=== PATIENT | male | born 1985 | race Caucasian/White ===

== ENCOUNTER → 2017-03-14 | Emergency (ER) | payer SELFPAY ==
[~2017-03-14] VITALS: Ht 182.9 cm; Wt 97.5 kg
[2017-03-14 20:05] LABS: URINE BILIRUBIN - DIPSTICK NEGATIVE (NEG); URINE BLOOD 1+ (NEG)
[2017-03-14 20:06] LABS: HEMOGLOBIN 14.4 g/dL (14.1-18.0); LYMPH # 4.3 K/mm3 (0.7-4.5); LYMPH % 43.5 % (10-50)
--- NOTE | 2017-03-14 20:16 | Emergency Room Report ---
History of Present Illness Time Seen by 1999 Presenting Problem in Triage Pt arrived:Walked Presenting Problem:left flank pain. difficulty voiding Onset of symptoms date/time:/ or onset unknown for:MEDICAL HX UNKNOWN Treatment Prior to Arrival: CLIENT RELATIONSHIP MANAGER Provided by: Sepsis Risk Assessment: Temp: 98.7 B/P: 116/68 MAP: 84 Pulse: 75 Resp: 20 Recent fever? N Clinical Suspician of Infection? N Mental Status: 1 - Regular (Normal Baseline) Sepsis Risk:Low Sepsis Risk Have you (or family members/close friends) recently traveled outside the [place]? N If Yes, where/when: Have you had exposure to infectious disease within the past month? TB? Other? Specify: Source patient, RN notes reviewed, old records Exam Limitations no limitations Comment lt flank pain over the last few days with no fever or gross hematuria Cardiac Chest Pain Chest pain indicative of cardiac No Timing/Duration this evening Severity moderate ALLERGIES Coded Allergies: Penicillins (03/14/17) History Medical History General CAD? No Angina: No [place]: No Hypertension? No Hyperlipidemia? No CHF? No DVT? No PE? No COPD? No Asthma? No Anemia? No GERD? No Gastric ulcers? No GI Bleed? No Hernia? No Thyroid Problems? No Hypothyroidism? No CVA? No Seizures? No Diabetes? No Renal Insuffiency? No End Stage Renal Disease? No UTI? No Stones? No BPH? No GB Disease: No Nephritic Syndrome? No Asplenia? No Hepatitis? No Sickle Cell Disease? No Arthritis? No Migraines? No Cataracts? No Glaucoma? No MRSA? No HIV? No TB? No Anxiety? No Depression? No Cancer? No More? No Immunization Hx DT/Tetanus Unknown Surgical Hx Previous Surgery?Y knee surgery brain surgery Social History Smoking Hx Smoker: Current Every Day Smoker Tobacco: Yes Type Cigarettes Alcohol Alcohol: No Drugs none Review of Systems All Other Systems Reviewed and Negative Constitutional denies fever Eyes denies drainage ENT denies: ear discharge, epistaxis, throat pain. Respiratory denies cough, denies shortness of breath, denies wheezing Cardiovascular denies chest pain, denies syncope Gastrointestinal denies abdominal pain, denies diarrhea, denies vomiting Genitourinary denies: dysuria, frequency, hesitancy, hematuria. Musculoskeletal denies back pain, denies joint pain, denies neck pain Skin denies rash Psychiatric/Neurological denies headache, denies seizure Physical Exam Vital Signs Vital Signs Date Time Temp Pulse Resp B/P Pulse O2 O2 Flow FiO2 Ox Delivery Rate 03/14 1945 98.7 75 20 96 03/14 1944 98.7 75 20 96 - WBC >12,000 or <4,000 or 10% bands? 2 or more SIRS Criteria Met? B/P: MAP:84 Creatinine >2.0? UA output<0.5ml/kg/hr for 2 hrs? Platelet count >100,000? Lactate >2.0mmol/1? INR >1.2 or PTT > than 60 sec? Evidence of Organ Dysfunction? Provider documented clinical suspician of infection? N Sepsis Criteria Count: 1 Sepsis Risk: Low Sepsis Risk General Appearance no apparent distress Eye Exam - bilateral eye PERRL, bilateral eye EOMI Ear, Nose, Throat normal ENT inspection Neck supple Respiratory Status No: respiratory distress. Cardiovascular regular rate/rhythm Peripheral Pulses Pulses normal Yes Gastrointestinal soft Extremities normal inspection Strength 4 Upper Ext (L), 4 Upper Ext (R), 4 Lower Ext (L), 4 Lower Ext (R) Neurologic alert, fourdrinier machine tender II-XII nml as tested, no motor/sensory deficits Reflexes Reflexes normal Yes Mental status normal mood/affect Skin intact Medical Decision Making LABS/Meds/Orders Pt receiving controlled substance in ED? No Results/Orders Laboratory Tests 03/14/171999: Sodium 138, Potassium 3.7, Chloride 105, Carbon Dioxide 26, BUN 16, Creatinine 1.0, Estimated Creat Clear 149, Estimated GFR (MDRD) 88, Glucose 97, Calcium 8.9 , Total Bilirubin 0.4, AST 13 L, ALT 22, Alkaline Phosphatase 108, Total Protein 7.1, Albumin 3.9, Globulin 3.2, Albumin/Globulin Ratio 1.2, WBC 9.9, RBC 4.77, Hgb 14.4, Hct 44.1, MCV 92.6, RDW 12.7, Plt Count 276, MPV 7.6, Gran % 48.6, Gran # 4.8, Lymphocytes % 43.5, Monocytes % 4.0, Eosinophils % 3.3, Basophils % 0.6, Lymphocytes # 4.3, Monocytes # 0.4, Eosinophils # 0.3, Basophils # 0.1, PUBS MCHC 32.6, MCH 30.1, Urine Color YELLOW, Urine Appearance CLEAR, Urine pH 6.0, Ur Specific [place] 1.020, Urine Protein NEGATIVE, Urine Ketones NEGATIVE, Urine Blood 1+ H, Urine Nitrate NEGATIVE, Urine Bilirubin NEGATIVE, Urine Urobilinogen 0.2, Ur Leukocyte Esterase NEGATIVE, Urine RBC 10- 20, Urine WBC 3-5, Ur Squamous Epith Cells 10-20, Urine Bacteria 1+, Urine Glucose NEGATIVE Current Medication Orders Sig/Lesley Start time Last Medication Dose Route Stop Time Status Admin Sodium Chloride 10 ML PRN PRN 03/14 2000 AC IV 03/15 1948 Sodium Chloride 1,000 ML .Q1H1M 03/14 2000 AC 03/14 IV 03/14 Sodium Chloride 10 ML PRN PRN 03/14 2000 AC IV 03/15 1948 Orders Procedure Date/time Status DIET-NOTHING BY MOUTH 03/[address] ABD & PELVIS W/O CONTRAST 03/[address] ABD/PELVIS REQ 03/14 1948 Complete IV SALINE LOCK 03/14 1948 Active URINALYSIS/COMPLETE 03/14 1948 Complete COMPLETE METABOLIC PANEL 03/14 1948 Complete CBC WITH AUTO DIFF 03/14 1948 Complete XRAY/CT/US XRAY/CT/US CT abdomen, pelvis CT interpretation by discussed w/radiologist Time results known: 2024 Departure Departure Time of Disposition 2029 Disposition DC Home or Self Care(routine) Clinical Impression Primary Impression: Renal colic on left side Condition STABLE Patient Instructions DI for Kidney Stones Additional Instructions fluids and strain urine and see pcp for follow up Discharge Counseling Counseled pt/family regarding diagnosis, test results, medications/RX, follow up needs ED Critical Care Critical Care No at 2033
[2017-03-14 20:40] VITALS: BP 134/69
--- NOTE | 2017-03-14 20:46 | RADIOLOGY REPORT PS360 ---
CT ABD PELVIS W/O CONTRAST COMPARISON: None HISTORY: Left flank pain TECHNIQUE: Multiaxial scans obtained from hemidiaphragms the pelvic floor and were performed without IV or oral contrast. Sagittal and coronal reformats were evaluated as well. FINDINGS: The lower lung salomon are clear. The liver and spleen appear normal. The stomach is distended with food particles and the gallbladder is markedly contracted but shows no stones. The pancreas is normal. The adrenal glands are normal. The kidneys are normal size and there is a tiny nontracking calculus midpole right kidney and possibly a very faint nonobstructing calculus lower pole left kidney. There is no obstructive uropathy of either kidney. However there is a tiny calculus 1 to 2 mm in size just inside the urinary bladder likely recently passed. Small bowel appears normal, the appendix is normal. There is a moderate amount stool in the ascending transverse colon. There is large amount stool in the sigmoid colon and rectum. Urinary bladder is normal, the prostate is normal. IMPRESSION: Probable recently passed tiny ureteral calculus 1 to 2 mm in size, other nonacute findings as described above
--- OUTSIDE RECORDS SUMMARY | 2017-03-17 14:48 | External Medical Summary Rpt | CCD ---
Author Author , MONTANA BOYLE Address Unknown Phone [email or web address] Care Team Providers Care Enterprise Solutions Architect Name Role Phone CHELO GUN CLUB MANAGER, CHELO Unavailable Unavailable GUN CLUB MANAGER ALMAGUER MAT, ALMAGUER Unavailable Unavailable [facility] ESCOTT EDW, ESCOTT Unavailable Unavailable [facility] Unavailable [facility] LOLI NIYA, LOLI NIYA Unavailable Unavailable [facility] Un[facility] MERHAR GAR, MERHAR Unavailable Unavailable [facility] BURTON, O' REEL Unavailable Unavailable FORTUNATO ALARCON Unavailable Unavailable [facility], Unavailable Unavailable [facility] Purpose Continuity of Care Document - 02-19-2016 through 2016 Problems Code Diagnosis DOS Provider Status R4182 ALTERED 02-26-2016 [facility] STATUS [facility] UNSPECIFIED R569 UNSPECIFIED 02-26-2016 [facility] CONVULSIONS [facility] R6889 OTHER 02-26-2016 [facility] SYMPTOMS [facility] AND SIGNS Z049 ENCOUNTER 02-21-2016 [facility] EXAMIN[facility] SERV &OBSERVATIO FOUNDATION N FOR UNS REASON I498 OTHER 02-19-2016 [facility] SPECIFIED [facility] CARDIAC F[facility] ARRHYTHMIAS R4781 SLURRED 02-19-2016 [facility]ECH [facility] R479 UNSPECIFIED 02-19-2016 [facility] DISTURBANCE S R9431 ABNORMAL 02-19-2016 [facility] ELECTROCARD SERV IOGRAM [facility] Z720 TOBACCO USE 02-19-2016 [facility] [id number] PERSONAL HX 02-19-2016 [facility] PH[facility] INJURY & TRAUMA Results Labs Lab Lab Date Result Refere Interp Status Commen Order Detail nces retati t Range on Urinalysis dipstick W Reflex Microscopic panel in Urine (03-14-2017 20:00) Bacteri 1+ O complet a 017 ed [Presen 20:00 ce] in Urine sedimen t by Light microsc opy Erythro 03-23 0 complet cytes 017 ed [Presen 20:00 ce] in Urine sedimen t by Light microsc opy Epithel 10-11-2 10-20 OCC complet ial 017 ed cells.s 20:00 quamous [Presen ce] in Urine sedimen t by Microsc opy high power field Leukocy 10-11-2 3-5 O complet eliana 017 wbc/hpf ed [#/volu 20:00 me] in Urine Urinalysis dipstick W Reflex Microscopic panel in Urine (03-14-2017 20:00) Appeara --2 CLEAR CLEAR complet nce of 017 ed Urine 20:00 Bilirub --2 NEGATIV NEG complet in 017 E ed [Presen 20:00 ce] in Urine by Test strip Erythro 03-14-2 1+ NEG Abnorma complet cytes 017 l ed [Presen 20:00 ce] in Urine Color 03-14-2 YELLOW YELLOW complet of 017 ed Urine 20:00 Ketones 03-14-2 NEGATIV NEG complet 017 E ed [Presen 20:00 ce] in Urine by Automat ed test strip Mucus 03-14-2 NEGATIV NEG complet [Presen 017 E ed ce] in 20:00 Urine sedimen t by Light microsc opy Nitrite 03-14-2 NEGATIV NEG complet 017 E ed [Presen 20:00 ce] in Urine by Test strip Urobili --2 0.2 NEG complet nogen 017 ed [Presen 20:00 ce] in Urine by Test strip Procedures Procedure [place] [address] [place] NIYA HEAD/BRAI 6 MEDICAL N W/O SERV CONTRAST FOUNDATIO MATERIAL N RADEX 57617 [place] HAND 6 MEDICAL GAR MINIMUM 3 SERV VIEWS FOUNDATIO N RADEX 16941 [place] FOREARM 2 6 MEDICAL GAR VIEWS SERV FOUNDATIO N RADEX 49689 [place] [facility] WRIST 6 MEDICAL GAR COMPLETE SERV MINIMUM 3 FOUNDATIO VIEWS N ECG 13169 [facility] ROUTINE [address] [facility] W/LEAST 12 LDS TRCG ONLY W/O I&R DRUG TEST G0480 [facility] [address] [facility] METH P DAY 1-[address] [place] [address] [place] ANGIOGRAP 6 MEDICAL EDW HY HEAD SERV W/CONTRAS FOUNDATIO T/NONCONT N RAST ECG 62741 NIDHI CHELO ROUTINE 6 MEDICAL GUN CLUB MANAGER ECG SERV W/LEAST FOUNDATIO 12 LDS N I&R ONLY BLOOD 31715 [facility] COUNT 6 Y Y COMPLETE [facility] AUTOMATED LOCM Q9967 [facility] [phone] Y Y MG/ML [facility] IODINE CONCENTRA TION PER ML COMPREHEN 81504 [facility] SIVE [address] [facility] PANEL URNLS DIP 24899 [facility] 6 Y Y STICK/TAB [facility] LET RGNT AUTO W/[place] [address] NIDHI GIBBONSOTT ANGIOGRAP 6 MEDICAL EDW HY NECK SERV W/CONTRAS FOUNDATIO T/NONCONT N RAST Encounters Encounter Start End Date Code Location Performer Type Date OFFICE 07567 NIDHI FORTUNATO CANTU CONSULTAT 6 6 MEDICAL ION SERV NEW/ESTAB FOUNDATIO PATIENT N 60 MIN EMERGENCY 64589 NIDHI ALMAGUER 6 6 MEDICAL MAT DEPARTMEN SERV T VISIT FOUNDATIO HIGH/URGE N NT [facility] UNIVERSIT - 6 6 Y OUTPATIEN HOSPITAL T EMERGENCY [address] [facility] O[facility] REEL DEPT 6 6 [place] VISIT PHYSICIAN HIGH S ASSIST SEVERITY& THREAT FUNCJ
--- OUTSIDE RECORDS SUMMARY | 2017-03-17 14:48 | External Medical Summary Rpt | CCD ---
Author Author , MNOTANA BOYLE Address Unknown Phone [email or web address] Care Team Providers Care Sheriff Detective Name Role Phone CHELO CARTOGRAPHIC TECHNICIAN, CHELO Unavailable Unavailable CARTOGRAPHIC TECHNICIAN ALMAGUER MAT, ALMAGUER Unavailable Unavailable [facility] ESCOTT EDW, ESCOTT Unavailable Unavailable [facility] Unavailable [facility] LOLI NIYA, LOLI NIYA Unavailable Unavailable [facility] Unavailable Unavailable [facility], [facility] MERHAR GAR, MERHAR Unavailable Unavailable [facility] BURTON, O' REEL Unavailable Unavailable FORTUNATO ALARCON Unavailable Unavailable [facility], Unavailable Unavailable [facility] Purpose Continuity of Care Document - 02-19-2016 through 2016 Problems Code Diagnosis DOS Provider Status R4182 ALTERED 02-26-2016 [facility] STATUS [facility] UNSPECIFIED R569 UNSPECIFIED 02-26-2016 [facility] CONVULSIONS [facility] R6889 OTHER 02-26-2016 [facility] SYMPTOMS [facility] AND SIGNS Z049 ENCOUNTER 02-21-2016 [facility] EXAMINATION SERV &OBSERVATIO FOUNDATION N FOR UNS REASON I498 OTHER 02-19-2016 [place] [facility] SPECIFIED SERV CARDIAC FOUNDATION ARRHYTHMIAS R4781 SLURRED 02-19-2016 [place] [facility] SPEECH SERV [facility] R479 UNSPECIFIED 02-19-2016 [facility] DISTURBANCE S R9431 ABNORMAL 02-19-2016 [place] [facility] ELECTROCARD SERV IOGRAM [facility]ATION Z720 TOBACCO USE 02-19-2016 [facility] [id number] PERSONAL HX 02-19-2016 [facility] PHYSICAL [facility] INJURY [...] Procedure [place] [address] [place] OLLI NIYA HEAD/BRAI 6 MEDICAL N W/O SERV CONTRAST FOUNDATIO MATERIAL N RADEX 49476 [place] HAND 6 MEDICAL GAR MINIMUM 3 SERV VIEWS FOUNDATIO N RADEX 36846 [place] FOREARM 2 6 MEDICAL GAR VIEWS SERV FOUNDATIO N RADEX 63283 [place] WRIST 6 MEDICAL GAR COMPLETE SERV MINIMUM 3 FOUNDATIO VIEWS N ECG 26133 [facility] ROUTINE 6 Y Y ECG [facility] W/LEAST 12 LDS TRCG ONLY W/O I&R DRUG TEST G0480 [facility] [address] ID [facility] METH P DAY 1-[address] [place] [address] [place] ANGIOGRAP 6 MEDICAL EDW HY HEAD SERV W/CONTRAS FOUNDATIO T/NONCONT N RAST ECG 04257 NIDHI CHELO ROUTINE 6 MEDICAL CARTOGRAPHIC TECHNICIAN ECG SERV W/LEAST FOUNDATIO 12 LDS N I&R ONLY BLOOD 53672 [facility] COUNT 6 Y Y COMPLETE [facility] AUTOM[facility] LOCM Q9967 [facility] [phone] Y Y MG/ML [facility] IODINE CONCENTRA TION PER ML COMPREHEN 88322 [facility] SIVE 6 Y Y METABOLIC [facility] PANEL URNLS DIP 26290 [facility] 6 Y Y STICK/TAB [facility] LET RGNT AUTO W/[place] [address] NIDHI GIBBONSOTT ANGIOGRAP 6 MEDICAL EDW HY NECK SERV W/CONTRAS FOUNDATIO T/NONCONT N RAST Encounters Encounter Start End Date Code Location Performer Type Date OFFICE 06875 NIDHI FORTUNATO CANTU CONSULTAT 6 6 MEDICAL ION SERV NEW/ESTAB FOUNDATIO PATIENT N 60 MIN EMERGENCY 96784 NIDHI ALMAGUER 6 6 MEDICAL MAT DEPARTMEN SERV T VISIT FOUNDATIO HIGH/URGE N NT [facility] HOSPITAL UNIVERSIT - 6 6 Y OUTPATIEN HOSPITAL T EMERGENCY 22065 [facility] DEPT 6 6 [place] VISIT PHYSICIAN HIGH S ASSIST SEVERITY& THREAT FUNCJ
--- OUTSIDE RECORDS SUMMARY | 2017-03-17 14:49 | External Medical Summary Rpt | CCD ---
Demographics Preferred Language Setswana Marital Status Unknown Synagogue Affiliation Unknown Race Unknown Ethnic Group Unknown Author Author , MONTANA BOYLE Address Unknown Phone Immunization No patient found.
--- OUTSIDE RECORDS SUMMARY | 2017-03-17 14:49 | External Medical Summary Rpt | CCD ---
Author Author , MONTANA Organization MON[place]NA Address Unknown Phone [email or web address] Care Team Providers Care Human Services Care Specialist Name Role Phone CHELO CORPORATE DRIVER, CHELO Unavailable Unavailable CORPORATE DRIVER ALMAGUER MAT, ALMAGUER Unavailable Unavailable [facility] Unavailable Unavailable [facility] LOLI NÚÑEZ, LOLI NÚÑEZ Unavailable Unavailable [facility] Un[facility]available [facility], [facility] MERHAR GAR, MERHAR Unavailable Unavailable [facility] FORTUNATO BOWLES Unavailable Unavailable [facility], Unavailable Unavailable [facility] Purpose Continuity of Care Document - 02-19-2016 through 2016 Problems Code Diagnosis DOS Provider Status R4182 ALTERED 02-26-2016 [facility] STATUS [facility] UNSPECIFIED R569 UNSPECIFIED 02-26-2016 [facility] CONVULSIONS [facility] R6889 OTHER 02-26-2016 [facility] SYMPTOMS [facility] AND SIGNS Z049 ENCOUNTER 02-21-2016 [place] [facility] EXAMIN[facility] SERV &OBSERVATIO FOUNDATION N FOR UNS REASON I498 OTHER 02-19-2016 [place] [facility] SPECIFIED [facility] CARDIAC FOUND[facility] ARRHYTHMIAS R4781 SLURRED 02-19-2016 [facility] R479 UNSPECIFIED 02-19-2016 [facility] DISTURBANCE S R9431 ABNORMAL 02-19-2016 [place] [facility] ELECTROCARD SERV IOGRAM [facility]ATION Z720 TOBACCO USE 02-19-2016 [facility] [id number] PERSONAL HX 02-19-2016 [facility] INJURY & TRAUMA Procedures Procedure [place] [address] [place] LOL[place] NÚÑE[place] HEAD/BRAI 6 MEDICAL N W/O SERV CONTRAST FOUNDATIO MATERIAL N RADEX 97394 [place] HAND 6 MEDICAL GAR MINIMUM 3 SERV VIEWS FOUNDATIO N RADEX 87764 [place] FOREARM 2 6 MEDICAL GAR VIEWS SERV FOUNDATIO N RADEX 93205 [place] WRIST 6 MEDICAL GAR COMPLETE SERV MINIMUM 3 FOUNDATIO VIEWS N ECG 03061 [place] ROUTINE 6 MEDICAL CORPORATE DRIVER ECG SERV W/LEAST FOUNDATIO 12 LDS N I&R ONLY BLOOD 33225 [facility] COUNT 6 Y Y [place] [address] [facility] ANGIOGRAP 6 Y Y HY [facility]PITAL W/CONTRAS T/NONCONT RAST COMPREHEN 04655 [facility] SIVE 6 Y Y METABOLIC [facility] PANEL LOCM Q9967 [facility] [phone] 6 Y Y MG/ML [facility] IODINE CONCENTRA TION PER ML URNLS DIP 91747 [facility] 6 Y Y STICK/TAB [facility] LET RGNT AUTO W/[place] [address] [facility] ANGIOGRAP 6 Y Y HY NECK [facility]OSPITAL W/CONTRAS T/NONCONT RAST ECG 67489 [facility] ROUTINE [address] [facility] W/LEAST 12 LDS TRCG ONLY W/O I&R DRUG TEST G0480 [facility] DEFINV [address] ID [facility] HOSPITAL METH P DAY 1-7 DRUG CL Encounters Encounter Start End Date Code Location Performer Type Date EMERGENCY 79086 NIDHI ALMAGUER 6 6 MEDICAL MAT DEPARTMEN SERV T VISIT FOUNDATIO HIGH/URGE N NT SEVERITY OFFICE 15151 NIDHI CANTU CONSULTAT 6 6 MEDICAL ION SERV NEW/ESTAB FOUNDATIO PATIENT N 60 MIN HOSPITAL UNIVERSIT - 6 6 Y OUTPATIEN HOSPITAL T EMERGENCY 16858 UNIVERSIT DEPT 6 6 Y VISIT HOSPITAL HIGH SEVERITY& THREAT FUNCJ
--- OUTSIDE RECORDS SUMMARY | 2017-03-17 14:49 | External Medical Summary Rpt ---
Author Author [place] Price, [place] Production Organization [place] Production Address Unknown Phone Unavailable Results Comprehensive metabolic 2000 panel in Serum or Plasma Observa Value Referen Units Interpr Notes Date tion ce etation Range Albumin/G 1.1 - 1.8 No Normal No Mar 11 lobulin informati informati 2017 8:00 [Mass on in on in PM ratio] in source source Serum or data data Plasma Albumin 3.4 - 5.0 gm/dL Normal No Mar 14 [Mass/vol informati 2017 8:00 ume] in on in PM Serum or source Plasma data Alkaline 46 - 116 U/L Normal No Mar 14 phosphata informati 2017 8:00 se on in PM [Enzymati source c data activity/ volume] in Serum or Plasma Bilirubin 0.2 - 1.0 mg/dL Normal No Mar 14 .total informati 2017 8:00 [Mass/vol on in PM ume] in source Serum or data Plasma Urea 7 - 18 mg/dL Normal No Mar 14 nitrogen informati 2017 8:00 [Mass/vol on in PM ume] in source Serum or data Plasma Calcium 8.5 - mg/dL Normal No Mar 14 [Mass/vol 10.1 informati 2017 8:00 ume] in on in PM Serum or source Plasma data Chloride 98 - 107 mmoL/L Normal No Mar 11 [Moles/vo informati 2017 8:00 lume] in on in PM Serum or source Plasma data Carbon 21.0 - mmoL/L Normal No Mar 11 dioxide, 32.0 informati 2017 8:00 total on in PM [Moles/vo source lume] in data Serum or Plasma Creatinin 0.70 - mg/dL Normal No Oct 11 e 1.30 informati 2017 8:00 [Mass/vol on in PM ume] in source Serum or data Plasma Creatinin 50 - 200 ML/MIN Normal No Oct 11 e renal informati 2017 8:00 clearance on in PM source predicted data by Cockcroft -Gault formula Estimated >60 ML/MIN No REFERENCE Oct 11 informati RANGE: 2017 8:00 glomerula on in >60 PM r source ML/MIN/1. filtratio data 73 SQUARE n rate METERSIf (GF this patient is -A merican, then multiply theresult by 1.210. Globulin 1.3 - 3.2 gm/dL Normal No Mar 14 [Mass/vol informati 2016 8:00 ume] in on in PM Serum source data Glucose 74 - 106 mg/dL Normal No Mar 14 [Mass/vol informati 2016 8:00 ume] in on in PM Serum or source Plasma data Potassium 3.5 - 5.1 mmoL/L Normal No Mar 14 informati 2016 8:00 [Moles/vo on in PM lume] in source Serum or data Plasma Sodium 136 - 145 mmoL/L Normal No Mar 14 [Moles/vo informati 2016 8:00 lume] in on in PM Serum or source Plasma data Aspartate 15 - 37 U/L Low No Mar 14 informati 2016 8:00 aminotran on in PM sferase source [Enzymati data c activity/ volume] in Serum or Plasma Alanine 12 - 78 U/L Normal No Mar 14 aminotran informati 2016 8:00 sferase on in PM [Enzymati source c data activity/ volume] in Serum or Plasma Protein 6.4 - 8.2 gm/dL Normal No Mar 14 [Mass/vol informati 2016 8:00 ume] in on in PM Serum or source Plasma data Urinalysis dipstick W Reflex Microscopic panel in Urine Observa Value Referen Units Interpr Notes Date tion ce etation Range Appeara CLEAR CLEAR No No No Mar 14 nce of informa informa informa 2016 Urine tion in tion in tion in 8:00 PM source source source data data data Bacteri 1+ O No No No Mar 14 a informa informa informa 2016 [Presen tion in tion in tion in 8:00 PM ce] in source source source Urine data data data sedimen t by Light microsc opy Bilirub NEGATIV NEG No No No Mar 14 in E informa informa informa 2016 [Presen tion in tion in tion in 8:00 PM ce] in source source source Urine data data data by Test strip Erythro 1+ NEG No Abnorma No Mar 14 cytes informa l informa 2016 [Presen tion in tion in 8:00 PM ce] in source source Urine data data Color YELLOW YELLOW No No No Mar 14 of informa informa informa 2017 Urine tion in tion in tion in 8:00 PM source source source data data data Glucose NEG No No No Mar 14 [Mass/vol informati informati informati 2016 8:00 ume] in on in on in on in PM Urine by source source source Test data data data strip Ketones NEGATIV NEG mg/dL No No Mar 14 E informa informa 2016 [Presen tion in tion in 8:00 PM ce] in source source Urine data data by Automat ed test strip Mucus NEGATIV NEG No No No Mar 14 [Presen E informa informa informa 2016 ce] in tion in tion in tion in 8:00 PM Urine source source source sedimen data data data t by Light microsc opy Nitrite NEGATIV NEG No No No Mar 14 E informa informa informa 2016 [Presen tion in tion in tion in 8:00 PM ce] in source source source Urine data data data by Test strip pH of 5.0 - 8.5 No Normal No Mar 14 Urine informati informati 2017 8:00 on in on in PM source source data data Protein NEG mg/dL No No Mar 14 [Mass/vol informati informati 2016 8:00 ume] in on in on in PM Urine by source source Automated data data test strip Erythro 10-20 0 rbc/hpf No No Mar 14 cytes informa informa 2016 [Presen tion in tion in 8:00 PM ce] in source source Urine data data sedimen t by Light microsc opy Specific 1.005 - No Normal No Mar 14 gravity 1.030 informati informati 2017 8:00 of Urine on in on in PM source source data data Epithel 10-20 OCC #/hpf No No Mar 14 ial informa informa 2017 cells.s tion in tion in 8:00 PM quamous source source data data [Presen ce] in Urine sedimen t by Microsc opy high power field Urobili 0.2 NEG E.U./dL No No Mar 14 nogen informa informa 2016 [Presen tion in tion in 8:00 PM ce] in source source Urine data data by Test strip Leukocy [3 O wbc/hpf No No Mar 14 eliana wbc/hpf informa informa 2016 [#/volu ; 5 tion in tion in 8:00 PM me] in wbc/hpf source source Urine ] data data CBC W Auto Differential panel in Blood Observa Value Referen Units Interpr Notes Date tion ce etation Range Basophils 0 - 0.2 K/MM3 Normal No Mar 14 informati 2016 8:00 [#/volume on in PM ] in source Blood by data Automated count Basophils 0.1 - 2.0 % Normal No Mar 14 informati 2016 8:00 leukocyte on in PM s in source Blood by data Automated count Eosinophi 0.0 - 0.4 K/mm3 Normal No Mar 14 ls informati 2016 8:00 [#/volume on in PM ] in source Blood by data Automated count Eosinophi 0.1 - % Normal No Mar 14 ls/100 12.0 informati 2016 8:00 leukocyte on in PM s in source Blood by data Automated count Granulocy 1.3 - 8.0 K/mm3 Normal No Mar 14 eliana informati 2016 8:00 [#/volume on in PM ] in source Blood by data Automated count Granulocy 37.0 - % Normal No Mar 14 eliana/100 80.0 informati 2016 8:00 leukocyte on in PM s in source Blood by data Automated count Hematocri 42.0 - % Normal No Mar 14 t [Volume 52.0 informati 2016 8:00 on in PM Fraction] source of Blood data Hemoglobi 14.1 - g/dL Normal No Mar 14 n 18.0 informati 2016 8:00 [Mass/vol on in PM ume] in source Blood data Lymphocyt 0.7 - 4.5 K/mm3 Normal No Mar 14 es informati 2016 8:00 [#/volume on in PM ] in source Unspecifi data ed specimen by Automated count Lymphocyt 10 - 50 % Normal No Mar 14 es informati 2016 8:00 [#/volume on in PM ] in source Unspecifi data ed specimen by Automated count Erythrocy 27 - 31.2 pg Normal No Mar 14 te mean informati 2016 8:00 corpuscul on in PM ar source hemoglobi data n [Entitic mass] Erythrocy 31.8 - g/dl Normal No Mar 14 te mean 35.4 informati 2016 8:00 corpuscul on in PM ar source hemoglobi data n concentra tion [Mass/vol ume] by Automated count Erythrocy 82.2 - fl Normal No Mar 14 te mean 97.8 informati 2016 8:00 corpuscul on in PM ar volume source [Entitic data volume] by Automated count Monocytes 0.1 - 1.0 K/mm3 Normal No Mar 14 informati 2016 8:00 [#/volume on in PM ] in source Blood by data Automated count Monocytes 1.7 - 9.3 % Normal No Mar 14 /100 informati 2016 8:00 leukocyte on in PM s in source Blood by data Automated count Platelet 7.4 - fl Normal No Mar 14 mean 10.4 informati 2016 8:00 volume on in PM [Entitic source volume] data in Blood by Automated count Platelets 142 - 424 K/mm3 Normal No Mar 14 inform2016 8:00 [#/volume on in PM ] in source Blood data Erythrocy 4.6 - 6.2 M/mm3 Normal No Mar 14 eliana informati 2016 8:00 [#/volume on in PM ] in source Amniotic data fluid Erythrocy 11.5 - % Normal No Mar 14 te 17.5 informati 2016 8:00 distribut on in PM ion width source [Entitic data volume] by Automated count Leukocyte 4.8 - K/MM3 Normal No Mar 14 s 10.8 informati 2016 8:00 [#/volume on in PM ] in source Blood data Urinalysis dipstick W Reflex Microscopic panel in Urine Observa Value Referen Units Interpr Notes Date tion ce etation Range Appeara CLEAR CLEAR No No No Mar 14 nce of informa informa informa 2016 Urine tion in tion in tion in 8:00 PM source source source data data data Bilirub NEGATIV NEG No No No Mar 14 in E informa informa informa 2016 [Presen tion in tion in tion in 8:00 PM ce] in source source source Urine data data data by Test strip Erythro 1+ NEG No Abnorma No Mar 14 cytes informa l informa 2016 [Presen tion in tion in 8:00 PM ce] in source source Urine data data Color YELLOW YELLOW No No No Mar 14 of informa informa informa 2016 Urine tion in tion in tion in 8:00 PM source source source data data data Glucose NEG No No No Mar 14 [Mass/vol informati informati informati 2016 8:00 ume] in on in on in on in PM Urine by source source source Test data data data strip Ketones NEGATIV NEG mg/dL No No Mar 14 E informa informa 2016 [Presen tion in tion in 8:00 PM ce] in source source Urine data data by Automat ed test strip Mucus NEGATIV NEG No No No Mar 14 [Presen E informa informa informa 2016 ce] in tion in tion in tion in 8:00 PM Urine source source source sedimen data data data t by Light microsc opy Nitrite NEGATIV NEG No No No Mar 14 E informa informa informa 2016 [Presen tion in tion in tion in 8:00 PM ce] in source source source Urine data data data by Test strip pH of 5.0 - 8.5 No Normal No Mar 14 Urine informati informati 2016 8:00 on in on in PM source source data data Protein NEG mg/dL No No Mar 14 [Mass/vol informati informati 2016 8:00 ume] in on in on in PM Urine by source source Automated data data test strip Specific 1.005 - No Normal No Mar 14 gravity 1.030 informati informati 2017 8:00 of Urine on in on in PM source source data data Urobili 0.2 NEG E.U./dL No No Mar 14 nogen informa informa 2016 [Presen tion in tion in 8:00 PM ce] in source source Urine data data by Test strip
--- OUTSIDE RECORDS SUMMARY | 2017-03-17 14:49 | External Medical Summary Rpt | CCD ---
Demographics Preferred Language Belarusian Marital Status Unknown Voodoo Affiliation Unknown Race Unknown Ethnic Group Unknown Author Author , [place] BOYLE Address Unknown Phone Immunization No patient found.
--- OUTSIDE RECORDS SUMMARY | 2017-03-17 14:49 | External Medical Summary Rpt | CCD ---
Author Author , [place] Organization [place] Address Unknown Phone [email or web address] Care Team Providers Care Pressfitter Name Role Phone CHELO TUBE ROOM CASHIER, CHELO Unavailable Unavailable TUBE ROOM CASHIER ALMAGUER MAT, ALMAGUER Unavailable Unavailable [facility] Un[facility] N[facility], LOLI NÚÑEZ [facility]available Unavailable [facility] MERHAR GAR, MERHAR Unavailable Unavailable [facility] Unavailable Unavailable [facility], Unavailable Unavailable [facility] Purpose Continuity of Care Document - 02-19-2016 through 2016 Problems Code Diagnosis DOS Provider Status [id number] ALTERED 02-26-2016 [facility] UNSPECIFIED R569 UNSPECIFIED 02-26-2016 [facility] CONVULSIONS [facility] R6889 OTHER 02-26-2016 [facility] SYMPTOMS [facility] AND SIGNS Z049 ENCOUNTER 02-21-2016 [facility] &OBSERVATIO [facility] N FOR UNS REASON I498 OTHER 02-19-2016 [facility] SPEC[facility] CARDIAC [facility] ARRHYTHMIAS R4781 SLURRED 02-19-2016 [facility]ECH [facility] R479 UNSPECIFIED 02-19-2016 [facility] DISTURBANCE S R9431 ABNORMAL 02-19-2016 [facility] E[facility]ROC[facility] IOGRAM [facility] Z720 TOBACCO USE 02-19-2016 [facility] [id number] PERSONAL HX 02-19-2016 [facility]ALED [facility] PHYSICAL [facility] INJURY & TRAUMA Procedures Procedure [place] [address] [place] [facility] HEAD/BRAI 6 MEDICAL N W/O SERV CONTRAST [facility] MATERIAL N RADEX [address] [place] [facility] HAND 6 MEDICAL GAR MINIMUM 3 SERV VIEWS [facility] N RADEX [address] [place] [facility] FOREARM 2 6 MEDICAL GAR VIEWS SERV [facility] N RADEX [address] [place] [facility] WRIST 6 MEDICAL GAR COMPLETE SERV MINIMUM 3 FOUNDATIO VIEWS N ECG [address]116 [place] [facility] ROUTINE 6 MEDICAL TUBE ROOM CASHIER ECG SERV W/LEAST [facility]OUNDAT[facility] 12 LDS N I&R ONLY BLOOD 16471 [facility] COUNT 6 Y Y [place] [address] [facility] ANGIOGRAP 6 Y Y HY [facility] W/CONTRAS T/NONCONT RAST COMPREHEN 11021 [facility] SIVE 6 Y Y METABOLIC [facility] PANEL LOCM Q9967 [facility] [phone] 6 Y Y MG/ML [facility] IODINE CONCENTRA TION PER ML URNLS DIP 83092 [facility] 6 Y Y STICK/TAB [facility] LET RGNT AUTO W/[place] [address] [facility] ANGIOGRAP 6 Y Y HY NECK [facility] W/CONTRAS T/NONCONT RAST ECG 14853 [facility] ROUTINE 6 Y Y ECG [facility] W/LEAST 12 LDS TRCG ONLY W/O I&R DRUG TEST G0480 [facility] DEFINV [address] ID [facility] METH P DAY 1-7 DRUG CL Encounters Encounter Start End Date Code Location Performer Type Date EMERGENCY 48438 NIDHI ALMAGUER 6 6 MEDICAL MAT DEPARTMEN SERV T VISIT [facility] HIGH/URGE N NT SEVERITY OFFICE 87452 NIDHI CANTU CONSULTAT 6 6 MEDICAL ION SERV NEW/ESTAB [facility] PATIENT N 60 MIN HOSPITAL UNIVERSIT - 6 6 Y OUTPATIEN HOSPITAL T EMERGENCY 90648 UNIVERSIT DEPT 6 6 Y VISIT HOSPITAL HIGH SEVERITY& THREAT FUNCJ
== END ==
LOC: ER 19:35
PROVIDERS: Emergency Medicine
DX: N20.0 Calculus of kidney (principal); F17.210 Nicotine dependence, cigarettes, uncomplicated; Z88.0 Allergy status to penicillin